=== PATIENT | male | born 2000 | race Caucasian/White ===

== ENCOUNTER 2022-08-21 16:01 | Inpatient (IN) | payer OTHER ==
[~2022-08-21] VITALS: Ht 190.5 cm; Wt 72.7 kg
[2022-08-21 17:00] VITALS: BP 127/65
[2022-08-21 18:58] LABS: BASO # 0.1 10*3/uL (0.0-0.1); BASO % 0.6 % (0.0-1.0); EOS % 0.2 % (1.0-4.0); LYMPH # 2.8 10*3/uL (1.3-4.4); LYMPH % 32.5 % (27.0-41.0); MEAN CELL VOLUME 82.3 fl (80.0-94.0); MEAN CORPUSCULAR HGB CONC 32.8 g/dl (33.0-37.0); MEAN PLATELET VOLUME 10.5 fl (9.6-12.3); MONO # 0.4 10*3/uL (0.1-1.0); NEUT # 5.2 10*3/uL (2.3-7.9); NEUT % 61.5 % (47.0-73.0); PLATELET COUNT AUTOMATED 229 10*3/uL (130-400); RED BLOOD COUNT 5.71 10*6/uL (4.50-5.90); RED CELL DISTRI WIDTH 13.2 % (0-14.5); WHITE BLOOD COUNT 8.5 10*3/uL (4.8-10.8)
[2022-08-21 19:12] LABS: BILIRUBIN Negative (Negative); BLOOD Negative (Negative); CLARITY Clear (Clear); COLOR Yellow (Yellow); GLUCOSE Negative (Negative); KETONE Negative (Negative); LEUKO ESTERASE Negative (Negative); NITRITE Negative (Negative); PH 7.5 (4.5-8.0); UROBILINOGEN 0.2 E.U./dl (0.0-1.0)
[2022-08-21 19:18] LABS: ALKALINE PHOSPHATASE 60 U/L (46-116); BUN 9 mg/dl (9-23); CHLORIDE 100 mmol/L (98-107); LIPASE 39 U/L (12-53); SGPT/ALT 22 U/L (10-49); TOTAL PROTEIN 8.1 gm/dL (6.0-8.0)
[2022-08-21 19:23] LABS: WBC 0-2 wbc/hpf (0-5)
[2022-08-22] VITALS (11 sets, daily range): BP systolic 101–130; BP diastolic 51–81
[2022-08-22 06:08] LABS: BASO % 0.5 % (0.0-1.0); EOS # 0.1 10*3/uL (0.0-0.4); EOS % 0.8 % (1.0-4.0); HEMATOCRIT 39.9 % (42.0-52.0); LYMPH # 2.7 10*3/uL (1.3-4.4); LYMPH % 35.8 % (27.0-41.0); MEAN CELL VOLUME 83.5 fl (80.0-94.0); MEAN CORPUSCULAR HGB CONC 32.3 g/dl (33.0-37.0); MEAN PLATELET VOLUME 10.8 fl (9.6-12.3); MONO # 0.5 10*3/uL (0.1-1.0); MONO % 6.8 % (3.0-9.0); NEUT # 4.2 10*3/uL (2.3-7.9); PLATELET COUNT AUTOMATED 176 10*3/uL (130-400); RED BLOOD COUNT 4.78 10*6/uL (4.50-5.90); RED CELL DISTRI WIDTH 13.2 % (0-14.5); WHITE BLOOD COUNT 7.5 10*3/uL (4.8-10.8)
[2022-08-22 06:36] LABS: ALKALINE PHOSPHATASE 41 U/L (46-116); BUN 9 mg/dl (9-23); CHLORIDE 108 mmol/L (98-107); FREE T4 0.95 ng/dl (0.89-1.76); POTASSIUM 3.9 mmol/L (3.4-5.1); SGPT/ALT 16 U/L (10-49); THYROID STIM HORMONE (HS) 2.241 uIU/ml (0.550-4.780)
[2022-08-23] VITALS: BP 102/56
[2022-08-23 08:00] VITALS: BP 102/42
[2022-08-23 12:00] VITALS: BP 101/40
[2022-08-23] MEDS ORDERED: HYDROCODONE-AC1 EAC1 PO ×3 (12:06→13:39)
[2022-08-23] MEDS ORDERED: LAXATIVE5 MG PO ×3 (12:06→13:43)
== END 2022-08-23 14:37 | disposition home or self-care (01) | DRG 343 ==
LOC: ED 16:01 → EDBD 16:08 → EDHOLD 22:44 → 5E 22:44 → EDHOLD 23:33 → 5E 08-22 01:30
PROVIDERS: Internal Medicine; Physician Assistant; ADMIT Family Medicine; ATTEND Family Medicine
PROC: 0DTJ4ZZ Resection of Appendix, Percutaneous Endoscopic Approach (ICD-10-PCS; principal; 2022-08-22)
DX: K35.80 Unspecified acute appendicitis (principal); R00.0 Tachycardia, unspecified; G89.18 Other acute postprocedural pain; Z83.3 Family history of diabetes mellitus